=== PATIENT | female | born 1980 | race African-American/Black ===

== ENCOUNTER 2016-04-22 14:22 | Emergency (ER) ==
[2016-04-22] MEDS ORDERED: DECADRON IM ONE (16:37)
--- NOTE | 2016-04-22 17:08 | PROVIDER DOCUMENTATION ---
HPI-Musculoskeletal Pain/Inj - GENERAL Source: patient - HX OF PRESENT ILLNESS-MUSKULOSKELTAL Quality of Pain: reports: aching Severity in ED: moderate Onset/Duration: 2 days ago Timing: still present Any recent injury?: No Locality of Occurance: Work Similar Symptoms Previously?: Yes Recently seen or treated by another doctor?: Yes <Sukhjinder Conley - Last Filed: 04/22/16 17:04> <Ana Marie - Last Filed: 04/22/16 17:19> - GENERAL Chief Complaint: Extremity Pain Stated Complaint: EXTREMITY INJURY/PAIN Time Seen by Provider: 04/22/16 16:25 - HX OF PRESENT ILLNESS-MUSKULOSKELTAL Nature of Presenting Problem: Reports to er with cc of right hand pain anterior aspect radiating to thumb and wrist reports seen for it but medications didn't give any relief. Denies any injury but reports pain started at work. (Sukhjinder Conley) Review of Systems - Adult - REVIEW OF SYSTEMS - ADULT Constitutional: denies: chills, fever, fatique Eyes: reports: no symptoms reported Ears, Nose, Mouth & Throat: reports: no symptoms reported Cardiovascular: denies: chest pain, irregular heart rate, orthopnea, syncope Respiratory: reports: no symptoms reported Gastrointestinal: reports: no symptoms reported Genitourinary: reports: no symptoms reported Musculoskeletal: reports: see HPI. 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 Major Childhood Illnesses: reports: denies history Cardiovascular: reports: HTN (not on meds) Respiratory: reports: asthma Gastrointestinal: reports: denies history Obstetrical/Gynecological: reports: denies history Genitourinary: reports: denies history Musculoskeletal: reports: chronic pain (back) Neurological: reports: denies history Endocrine/Immune: reports: denies history Other Conditions: reports: denies history - PRIOR SURGERIES/PROCEDURES Surgical/Procedure History: reports: other (cyst removal ) - PRIOR HOSPITALIZATIONS Prior Hospitalizations: reports: none - IMMUNIZATION STATUS Childhood Immunizations: See Nurse Assessment Flu Vaccine: See Nurse Assessment - FAMILY HISTORY Family History: reviewed, not pertinent - SOCIAL HISTORY Smoking: cigarettes, less than 1 pack/day Provider spent 3-5 mins advising pt. on dangers of tobacco.: Discussed manners to quit use, and f/u contacts for add'l counseling. Substance Use: alcohol, marijuana <Sukhjinder Conley - Last Filed: 04/22/16 17:04> Physical Exam-Injury Related - Physical Exam-Injury Related Initial Vital Signs Reviewed: Yes General Appearance: appears well, alert, no apparent distress Eyes: PERRL/EOMI, pink conjunctivae Neck: non-tender, full range of motion, supple, normal inspection Respiratory: chest non-tender, lungs clear, normal breath sounds, no pleuratic chest pain, no respiratory distress, no accessory muscle use Cardiovascular: regular rate, rhythm, no edema, no gallop, no JVD, no murmur Peripheral Pulses: radial (R): 2+, radial (L): 2+ Abdominal Exam: normal bowel sounds, non tender, soft, no organomegaly, no pulsatile mass Extremity: normal range of motion, non-tender, normal gait, normal inspection, no pedal edema, no calf tenderness, normal capillary refill, pelvis stable, other (right hand full range of motion of wrist hand and digits scarring present no swelling or inflammation). negative: swelling, tenderness Integumentary: normal color, warm/dry Psych/Mental Status: normal mood/affect, normal thought content, normal thought process, oriented x 3 - Glascow Coma Score Best Eye Response ([place]): (4) open spontaneously Best Verbal Response ([place]): (5) oriented Best Motor Response ([place]): (6) obeys commands [place] Total: 15 <Sukhjinder Conley - Last Filed: 04/22/16 17:04> Progress <Sukhjinder Conley - Last Filed: 04/22/16 17:04> <Ana Marie - Last Filed: 04/22/16 17:19> - PLAN OF CARE/RESULTS Progress/Plan/Lab Results: Orders Category Date Time Status [ED: Urine Bedside] ORDERED Care 04/22/16 16:46 Active HAND COMPLETE RIGHT [RAD] Stat Exams 04/22/16 16:35 Taken Dexamethasone [Decadron] Med 04/22/16 16:37 Discontinued 10 mg IM NOW ONE Vital Signs - 24 hr 04/22/16 14:53 Temperature 99.5 F Pulse Rate 70 Respiratory 20 Rate Blood Pressure 144/87 O2 Sat by Pulse 99 Oximetry (Sukhjinder Conley) Departure <Sukhjinder Conley - Last Filed: 04/22/16 17:04> - Departure Time of Disposition Order: 17:13 Certified Medical Emergency: Emergent <Ana Marie - Last Filed: 04/22/16 17:19> - Departure DIAGNOSIS: Hand pain, right Disposition: HOME 01 Condition: Stable Additional Instructions: Medication as directed ED Follow Up Instructions: You have been treated by a care provider in the Emergency Department. These instructions are being provided to you so you can have an understanding of how to care for yourself upon discharge. Upon discharge from the Emergency Department, you are responsible for making arrangements for follow-up care by a physician of your choice. Take all prescribed medications as directed. Return to the Emergency Department immediately for any new or worsening symptoms. You may call the Physician Referral phone number at [phone] to obtain a list of Physicians who are taking new patients. Referrals: Serafin Sunshine [Primary Care Provider] - Kelly Aguiar MD [STAFF PHYSICIAN] - Attestation - Scribe Verification/Attestation Scribe:: Sukhjinder Conley Acting as Scribe for:: Ana Marie Scribe documention review:: This chart was documented by a scribe and accurately reflects the service the provider performed and the decisions made by the provider. <Sukhjinder Conley - Last Filed: 04/22/16 17:04> - Physician/ [place]MBER[place] Attestation Patient care was provided by Advanced Practice Provider:: Yes Advanced Practice Provider:: Ana Marie Advanced Practice Provider documentation review:: The Mid-level provider documentation, treatment plan and medical decision making was reviewed by the physician who agrees with all treatment and medical decision making by the [facility]. <Ana Marie - Last Filed: 04/22/16 17:19> Physician Attestation
[2016-04-22] MEDS ORDERED: TORADOL IM STA (17:14)
--- NOTE | 2016-04-22 17:21 | Diag Imaging Result Document ---
PROCEDURE NAME: HAND COMPLETE RIGHT - 04/22/2016 RIGHT HAND, 3 VIEWS: FINDINGS: There is no evidence of acute fracture or dislocation. Compared to 03/13/2011, there has been no significant change in the appearance of the hand. IMPRESSION: No evidence of acute disease.
[2016-04-22 17:51] VITALS: BP 135/80
== END 2016-04-22 17:45 | disposition home or self-care (01) ==
LOC: P.ED 14:22
DX: M79.641 Pain in right hand (principal); M79.644 Pain in right finger(s); M25.531 Pain in right wrist; I10 Essential (primary) hypertension; M54.9 Dorsalgia, unspecified; G89.29 Other chronic pain; F17.210 Nicotine dependence, cigarettes, uncomplicated; Z71.6 Tobacco abuse counseling; Z79.899 Other long term (current) drug therapy
CPT/HCPCS: 96372; J1885